=== PATIENT | female | born 1990 | race American Indian/Alaskan Native ===

== ENCOUNTER 2016-11-18 01:14 | Emergency (ER) | payer BC ==
[2016-11-18 03:09] VITALS: BP 132/74
[2016-11-18] MEDS ORDERED: TORADOL IM ONE (04:12)
--- NOTE | 2016-11-18 04:23 | Emergency Department Report ---
ED Back Pain/Injury HPI - General Chief Complaint: Back Pain/Injury Stated Complaint: CP/BACK/STOMACH PAIN Time Seen by Provider: 11/18/16 04:11 Source: patient Limitations: No Limitations - History of Present Illness Initial Comments: Patient c/o hurting her back at work hours ago. States back pain began while picking up heavy box of detergent at work ([employer]). States chest started to hurt (ache) afterwards. Reports pain exacerbated with movement and position change. Negative for audible pop/snap, difficulty breathing/SOB, radiation into legs/ thighs. Denies weakness, tingling, numbness, saddle paresthesia, other symptoms. Patient states she gets this sharp stomach pain that comes and goes out of no where. No pain at present. No nausea, vomit, diarrhea. LMP 1st week of November, on Nexplanon. - Related Data Previous Rx's Medication Instructions Recorded Last Taken Type Ibuprofen [Motrin 600 MG tab] 600 mg PO Q8H PRN #15 tablet 09/16/16 Unknown Rx metroNIDAZOLE [Flagyl TAB] 500 mg PO Q8HR #21 tablet 09/16/16 Unknown Rx Cyclobenzaprine [Flexeril] 10 mg PO TID PRN #30 tablet 11/18/16 Unknown Rx Ibuprofen [Motrin] 800 mg PO Q8HR PRN #30 tablet 11/18/16 Unknown Rx Allergies Allergy/AdvReac Type Severity Reaction Status Date / Time No Known Allergies Allergy Unverified 09/16/16 19:29 ED Review of Systems ROS: Stated complaint: CP/BACK/STOMACH PAIN Other details as noted in HPI Comment: All other systems reviewed and negative ED Past Medical Hx - Past Medical History Hx Hypertension: Yes - Surgical History Past Surgical History?: No - Social History Smoking Status: Never Smoker Substance Use Type: None - Medications Home Medications: Home Medications Medication Instructions Recorded Confirmed Last Taken Type Ibuprofen [Motrin 600 MG tab] 600 mg PO Q8H PRN #15 tablet 09/16/16 Unknown Rx metroNIDAZOLE [Flagyl TAB] 500 mg PO Q8HR #21 tablet 09/16/16 Unknown Rx Cyclobenzaprine [Flexeril] 10 mg PO TID PRN #30 tablet 11/18/16 Unknown Rx Ibuprofen [Motrin] 800 mg PO Q8HR PRN #30 tablet 11/18/16 Unknown Rx ED Physical Exam - General Limitations: No Limitations General appearance: alert, in no apparent distress - Head Head exam: Present: atraumatic, normocephalic - Eye Eye exam: Present: normal appearance, PERRL, EOMI - Neck Neck exam: Present: normal inspection, full ROM. Absent: tenderness, meningismus - Respiratory Respiratory exam: Present: normal lung sounds bilaterally, chest wall tenderness (anterior chestwall.). Absent: respiratory distress, accessory muscle use, decreased breath sounds, prolonged expiratory - Cardiovascular Cardiovascular Exam: Present: regular rate, normal rhythm - GI/Abdominal GI/Abdominal exam: Present: soft, normal bowel sounds. Absent: distended, tenderness - Extremities Exam Extremities exam: Present: normal inspection, full ROM, normal capillary refill. Absent: tenderness, pedal edema, joint swelling - Back Exam Back exam: Present: normal inspection, tenderness (b/l LS-region). Absent: full ROM, CVA tenderness (R), CVA tenderness (L), vertebral tenderness - Neurological Exam Neurological exam: Present: alert, oriented X3, normal gait, reflexes normal. Absent: motor sensory deficit - Psychiatric Psychiatric exam: Present: normal affect, normal mood - Skin Skin exam: Present: warm, dry, intact, normal color. Absent: rash, erythema, pallor, abrasion, ecchymosis ED Course Vital Signs 11/18/16 11/18/16 03:04 05:10 Temperature 98.8 F Pulse Rate 99 H Respiratory 18 Rate Blood Pressure 132/74 Blood Pressure 132/74 [Left] O2 Sat by Pulse 99 Oximetry ED Medical Decision Making - EKG Data -: EKG Interpreted by Me EKG shows normal: sinus rhythm Rate: normal (No obvious acute ST changes.) - Differential Diagnosis Lumbar strain/sprain, musculoskeletal chest pain. Critical care attestation.: If time is entered above; I have spent that time in minutes in the direct care of this critically ill patient, excluding procedure time. ED Disposition Clinical Impression: Chest wall pain Back pain Qualifiers: Back pain location: low back pain Chronicity: acute Back pain laterality: bilateral Sciatica presence: without sciatica Qualified Code(s): M54.5 - Low back pain Disposition: DISCHARGED TO HOME OR SELFCARE Is pt being admited?: No Does the pt Need Aspirin: No Condition: Stable Instructions: Chest Pain (ED), Costochondritis (ED), Acute Low Back Pain (ED), Core Strengthening Exercises (GEN) Prescriptions: Cyclobenzaprine [Flexeril] 10 mg PO TID PRN #30 tablet PRN Reason: Muscle Spasm Ibuprofen [Motrin] 800 mg PO Q8HR PRN #30 tablet PRN Reason: Pain Referrals: PRIMARY CARE, [Primary Care Provider] - 3-5 Days CHEMO PATTERSON MD [Staff Physician] - 3-5 Days Forms: Work/School Release Form(ED)
== END 2016-11-18 05:10 | disposition home or self-care (01) ==
LOC: ED 01:14
DX: R07.89 Other chest pain (principal); M54.5 Low back pain
CPT/HCPCS: 93005; 93010; 96372; 99282; J1885

== ENCOUNTER 2017-07-13 17:56 | Emergency (ER) | payer BC ==
[2017-07-13] MEDS ORDERED: TORADOL IM ONE (23:03)
--- NOTE | 2017-07-13 23:08 | Emergency Department Report ---
ED Back Pain/Injury HPI - General Chief Complaint: Back Pain/Injury Stated Complaint: BACK INJURY Time Seen by Provider: 07/13/17 22:25 Source: patient Limitations: No Limitations - History of Present Illness Initial Comments: 27-year-old female who presents department back pain. Patient states she injured her back in November. She did physical therapy and took pain medications at that time and felt like she had some mild relief. She continues to have intermittent pain in the last 3 days has had continuous pain in the middle of her back, radiates down the sides. No fevers chills nausea vomiting. No numbness tingling. -: Gradual, days(s) (2) Similar Symptoms Previously: Yes Consistency: constant Improves With: none Worsens With: movement Context: other (working) - Related Data Previous Rx's Medication Instructions Recorded Last Taken Type metroNIDAZOLE [Flagyl TAB] 500 mg PO Q8HR #21 tablet 09/16/16 Unknown Rx Ibuprofen [Motrin] 800 mg PO Q8HR PRN #30 tablet 11/18/16 Unknown Rx Cyclobenzaprine [Flexeril 10 MG 10 mg PO TID PRN #10 tablet 07/13/17 Unknown Rx TAB] Ibuprofen [Motrin 600 MG tab] 600 mg PO Q8H PRN #30 tablet 07/13/17 Unknown Rx Allergies Allergy/AdvReac Type Severity Reaction Status Date / Time No Known Allergies Allergy Verified 07/13/17 18:11 ED Review of Systems ROS: Stated complaint: BACK INJURY Other details as noted in HPI Constitutional: denies: chills, fever Respiratory: denies: cough, orthopnea Musculoskeletal: back pain. denies: joint swelling, arthralgia Neurological: denies: headache, weakness, numbness, paresthesias, confusion ED Past Medical Hx - Past Medical History Hx Hypertension: Yes - Surgical History Past Surgical History?: No - Social History Smoking Status: Never Smoker Substance Use Type: None - Medications Home Medications: Home Medications Medication Instructions Recorded Confirmed Last Taken Type metroNIDAZOLE [Flagyl TAB] 500 mg PO Q8HR #21 tablet 09/16/16 Unknown Rx Ibuprofen [Motrin] 800 mg PO Q8HR PRN #30 tablet 11/18/16 Unknown Rx Cyclobenzaprine [Flexeril 10 MG 10 mg PO TID PRN #10 tablet 07/13/17 Unknown Rx TAB] Ibuprofen [Motrin 600 MG tab] 600 mg PO Q8H PRN #30 tablet 07/13/17 Unknown Rx ED Physical Exam - General Limitations: No Limitations General appearance: alert, in no apparent distress - Head Head exam: Present: atraumatic, normocephalic - Neck Neck exam: Present: full ROM. Absent: tenderness - Respiratory Respiratory exam: Present: normal lung sounds bilaterally. Absent: respiratory distress, wheezes - Cardiovascular Cardiovascular Exam: Present: regular rate, normal rhythm - Back Exam Back exam: Present: full ROM. Absent: tenderness, CVA tenderness (R), CVA tenderness (L), muscle spasm, paraspinal tenderness, vertebral tenderness - Neurological Exam Neurological exam: Present: alert, oriented X3. Absent: motor sensory deficit ED Course Vital Signs 07/13/17 18:09 Temperature 98.8 F Pulse Rate 84 Respiratory 16 Rate Blood Pressure 140/78 O2 Sat by Pulse 98 Oximetry ED Medical Decision Making - Medical Decision Making 27-year-old female here with back pain. Patient states that she's had pain for several days and this is consistent with her prior pain. She has no neurological difficulties. I suspect this is muscle type pain and aggravation of her chronic injury. Plan discharged home. Critical care attestation.: If time is entered above; I have spent that time in minutes in the direct care of this critically ill patient, excluding procedure time. ED Disposition Clinical Impression: Back pain Disposition: DC-01 TO HOME OR SELFCARE Is pt being admited?: No Condition: Stable Instructions: Back Pain (ED), Acute Low Back Pain (ED), Core Strengthening Exercises (GEN) Prescriptions: Cyclobenzaprine [Flexeril 10 MG TAB] 10 mg PO TID PRN #10 tablet PRN Reason: Muscle Spasm Ibuprofen [Motrin 600 MG tab] 600 mg PO Q8H PRN #30 tablet PRN Reason: Pain Referrals: PRIMARY CARE,MD [Primary Care Provider] - 3-5 Days
[2017-07-13 23:59] VITALS: BP 134/80
== END 2017-07-14 | disposition home or self-care (01) ==
LOC: ED 17:56
DX: M54.9 Dorsalgia, unspecified (principal); I10 Essential (primary) hypertension; X58.XXXS Exposure to other specified factors, sequela
CPT/HCPCS: 96372; 99282; J1885

== ENCOUNTER 2017-09-28 06:27 | Emergency (ER) | payer BC ==
--- NOTE | 2017-09-28 07:42 | XRay Report ---
FINAL REPORT EXAM: XR CHEST ROUTINE 2V HISTORY: Shortness of breath TECHNIQUE: PA and lateral views of the chest were submitted. FINDINGS: The heart size and mediastinum appear normal. The lungs are clear. The bones and soft tissues appear normal. IMPRESSION: Normal chest.
[2017-09-28 08:17] LABS: Basophils % (Auto) 0.6 % (0.0-1.8); Eosinophils % (Auto) 6.4 % (0.0-4.3); Hematocrit 35.8 % (30.3-42.9); Hemoglobin 11.6 gm/dl (10.1-14.3); Mean Corpuscular HGB Conc 32 % (30-34); Mean Corpuscular Volume 80 fl (79-97); Platelet Count 256 K/mm3 (140-440); Red Blood Count 4.46 M/mm3 (3.65-5.03); White Blood Count 5.9 K/mm3 (4.5-11.0)
[2017-09-28 08:18] LABS: Mean Corpuscular Hemoglobin 26 pg (28-32)
[2017-09-28 08:26] LABS: Anion Gap 22 mmol/L; BUN/Creatinine Ratio 22; Blood Urea Nitrogen 11 mg/dL (7-17); Calcium 8.8 mg/dL (8.4-10.2); Carbon Dioxide 18 mmol/L (22-30); Chloride 106.3 mmol/L (98-107); Glucose 97 mg/dL (65-100); Potassium 4.3 mmol/L (3.6-5.0); Sodium 142 mmol/L (137-145)
--- NOTE | 2017-09-28 13:41 | Emergency Department Report ---
ED General Adult HPI - General Chief complaint: Chest Pain Stated complaint: CP Time Seen by Provider: 09/28/17 13:00 Source: patient Mode of arrival: Ambulatory Limitations: No Limitations - History of Present Illness Initial comments: The patient actually is not complaining of chest pain at all although she had some discomfort with cough. She is here complaining of productive sputum which has been white to green in color. 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 She's had no pleuritic pain no recent travel and the left pain or swelling. She states that she felt like she had a fever yesterday but did not measure her temperature. She has no history of VTE. -: Gradual, days(s) Location: chest (only on cough a soreness) Consistency: now resolved ( all) Improves with: none Worsens with: none Associated Symptoms: other (states some difficulty swallowing) Treatments Prior to Arrival: none - Related Data Previous Rx's Medication Instructions Recorded Last Taken Type metroNIDAZOLE [Flagyl TAB] 500 mg PO Q8HR #21 tablet 09/16/16 Unknown Rx Ibuprofen [Motrin] 800 mg PO Q8HR PRN #30 tablet 11/18/16 Unknown Rx Cyclobenzaprine [Flexeril 10 MG 10 mg PO TID PRN #10 tablet 07/13/17 Unknown Rx TAB] Ibuprofen [Motrin 600 MG tab] 600 mg PO Q8H PRN #30 tablet 07/13/17 Unknown Rx Azithromycin [Zithromax Z-MAHESH] 250 mg PO DAILY #6 tablet 09/28/17 Unknown Rx Allergies Allergy/AdvReac Type Severity Reaction Status Date / Time No Known Allergies Allergy Verified 07/13/17 18:11 ED Review of Systems ROS: Stated complaint: CP Other details as noted in HPI Constitutional: denies: chills, fever Eyes: denies: eye pain, eye discharge, vision change ENT: denies: ear pain, throat pain Respiratory: cough. denies: shortness of breath, wheezing Cardiovascular: as per HPI. denies: palpitations Endocrine: no symptoms reported Gastrointestinal: denies: abdominal pain, nausea, diarrhea Genitourinary: denies: urgency, dysuria, discharge Musculoskeletal: denies: back pain, joint swelling, arthralgia Skin: denies: rash, lesions Neurological: denies: headache, weakness, paresthesias Psychiatric: denies: anxiety, depression Hematological/Lymphatic: denies: easy bleeding, easy bruising ED Past Medical Hx - Past Medical History Previous Medical History?: Yes Hx Hypertension: Yes - Surgical History Past Surgical History?: No - Social History Smoking Status: Never Smoker Substance Use Type: Alcohol - Medications Home Medications: Home Medications Medication Instructions Recorded Confirmed Last Taken Type metroNIDAZOLE [Flagyl TAB] 500 mg PO Q8HR #21 tablet 09/16/16 Unknown Rx Ibuprofen [Motrin] 800 mg PO Q8HR PRN #30 tablet 11/18/16 Unknown Rx Cyclobenzaprine [Flexeril 10 MG 10 mg PO TID PRN #10 tablet 07/13/17 Unknown Rx TAB] Ibuprofen [Motrin 600 MG tab] 600 mg PO Q8H PRN #30 tablet 07/13/17 Unknown Rx Azithromycin [Zithromax Z-MAHESH] 250 mg PO DAILY #6 tablet 09/28/17 Unknown Rx ED Physical Exam - General Limitations: No Limitations General appearance: alert, in no apparent distress - Head Head exam: Present: atraumatic, normocephalic - Eye Eye exam: Present: normal appearance. Absent: scleral icterus - ENT ENT exam: Present: mucous membranes moist - Neck Neck exam: Present: normal inspection - Respiratory Respiratory exam: Present: normal lung sounds bilaterally. Absent: respiratory distress - Cardiovascular Cardiovascular Exam: Present: regular rate, normal rhythm. Absent: systolic murmur, diastolic murmur, rubs, gallop - GI/Abdominal GI/Abdominal exam: Present: soft, normal bowel sounds. Absent: distended, tenderness, guarding, rebound - Extremities Exam Extremities exam: Present: normal inspection - Back Exam Back exam: Present: normal inspection - Neurological Exam Neurological exam: Present: alert, oriented X3, CN II-XII intact. Absent: motor sensory deficit - Psychiatric Psychiatric exam: Present: normal affect, normal mood - Skin Skin exam: Present: warm, dry, intact, normal color. Absent: rash ED Course Vital Signs 09/28/17 07:09 Temperature 98.7 F Pulse Rate 90 Respiratory 20 Rate Blood Pressure 111/66 O2 Sat by Pulse 99 Oximetry ED Medical Decision Making - Lab Data Result diagrams: 09/28/17 07:17 09/28/17 07:17 Laboratory Results - last 24 hr 09/28/17 09/28/17 07:17 07:17 WBC 5.9 RBC 4.46 Hgb 11.6 Hct 35.8 MCV 80 MCH 26 L MCHC 32 RDW 16.0 H Plt Count 256 Lymph % (Auto) 30.8 Stark % (Auto) 10.2 H Eos % (Auto) 6.4 H Baso % (Auto) 0.6 Lymph # 1.8 Stark # 0.6 Eos # 0.4 Baso # 0.0 Seg Neutrophils % 52.0 Seg Neutrophils # 3.1 Sodium 142 Potassium 4.3 Chloride 106.3 Carbon Dioxide 18 L Anion Gap 22 BUN 11 Creatinine 0.5 L Estimated GFR > 60 BUN/Creatinine Ratio 22 Glucose 97 Calcium 8.8 Troponin T < 0.010 - EKG Data -: EKG Interpreted by [facility] EKG shows normal: sinus rhythm, axis, intervals, QRS complexes, ST-T waves Rate: normal - EKG Data Interpretation: no acute changes - Radiology Data Radiology results: report reviewed Chest x-ray no acute process Critical care attestation.: If time is entered above; I have spent that time in minutes in the direct care of this critically ill patient, excluding procedure time. ED Disposition Clinical Impression: Acute bronchitis Qualifiers: Bronchitis organism: unspecified organism Qualified Code(s): J20.9 - Acute bronchitis, unspecified Disposition: DC-01 TO HOME OR SELFCARE Is pt being admited?: No Does the pt Need Aspirin: No Condition: Stable Instructions: Acute Bronchitis (ED) Additional Instructions: Follow-up with primary care provider. Rx as directed. Return any acute change or worsening symptoms or problem. Prescriptions: Azithromycin [Zithromax Z-MAHESH] 250 mg PO DAILY #6 tablet Referrals: PRIMARY CAREMD [Primary Care Provider] - 3-5 Days [facility] [Provider Group] - 3-5 Days Forms: Work/School Release Form(ED) Time of Disposition: 14:26
[2017-09-28 14:32] VITALS: BP 134/77
== END 2017-09-28 15:11 | disposition home or self-care (01) ==
LOC: ED 06:27
DX: J20.9 Acute bronchitis, unspecified (principal); I10 Essential (primary) hypertension
CPT/HCPCS: 36415; 71020; 80048; 84484; 85025; 93005; 93010

== ENCOUNTER 2017-11-01 19:01 | Emergency (ER) | payer BC ==
[2017-11-02 01:01] LABS: Bilirubin,Urine NEG (Negative); Blood,Urine NEG (Negative); Color,Urine Yellow (Yellow); Mucus,Urine FEW /HPF; Nitrite,Urine NEG (Negative); Protein,Urine <15 mg/dL mg/dL (Negative)
[2017-11-02 01:04] LABS: HCG Qualitative,Urine Negative (Negative)
--- NOTE | 2017-11-02 01:18 | Emergency Department Report ---
ED General Adult HPI - General Chief complaint: Upper Respiratory Infection Stated complaint: CHEST/BACK/ABD PAIN SORE THROAT Time Seen by Provider: 11/02/17 00:18 Source: patient Mode of arrival: Ambulatory Limitations: No Limitations - History of Present Illness Initial comments: 27-year-old -[place] female comes in with complaint of cough congestion sore throat chest pain from coughing and vomiting per patient. She also admits to abdominal pain. Patient reports she has a history of back injury back in November 2016 she was seen in Dr. Rodríguez which is orthopedic. She does report that her back pain started this a.m. She admits to vomiting 3 today. She reports that she is coughing all day she says at 4:30 started this morning chest pains from coughing. Patient has not taken any medications. And she does admit to having the flu a couple of weeks ago. She has no known drug allergies. Location: back Radiation: non-radiation Severity scale (0 -10): 10 Quality: aching Consistency: intermittent Improves with: none Worsens with: none Associated Symptoms: cough, loss of appetite - Related Data Previous Rx's Medication Instructions Recorded Last Taken Type metroNIDAZOLE [Flagyl TAB] 500 mg PO Q8HR #21 tablet 09/16/16 Unknown Rx Ibuprofen [Motrin] 800 mg PO Q8HR PRN #30 tablet 11/18/16 Unknown Rx Cyclobenzaprine [Flexeril 10 MG 10 mg PO TID PRN #10 tablet 07/13/17 Unknown Rx TAB] Azithromycin [Zithromax Z-MAHESH] 250 mg PO DAILY #6 tablet 09/28/17 Unknown Rx Ibuprofen [Motrin 600 MG tab] 600 mg PO Q8H PRN #30 tablet 11/02/17 Unknown Rx Allergies Allergy/AdvReac Type Severity Reaction Status Date / Time No Known Allergies Allergy Verified 07/13/17 18:11 ED Review of Systems ROS: Stated complaint: CHEST/BACK/ABD PAIN SORE THROAT Other details as noted in HPI Constitutional: denies: chills, fever Eyes: denies: eye pain, eye discharge, vision change ENT: throat pain (started this morning), congestion (nasal congestion) Respiratory: cough Cardiovascular: chest pain (coughing) Endocrine: no symptoms reported Gastrointestinal: vomiting (3 today) Genitourinary: denies: urgency, dysuria, discharge Musculoskeletal: back pain (this morning) Skin: denies: rash, lesions Neurological: denies: headache, weakness, paresthesias Psychiatric: denies: anxiety, depression ED Past Medical Hx - Past Medical History Hx Hypertension: Yes (with ) - Social History Smoking Status: Unknown if ever smoked Substance Use Type: None - Medications Home Medications: Home Medications Medication Instructions Recorded Confirmed Last Taken Type metroNIDAZOLE [Flagyl TAB] 500 mg PO Q8HR #21 tablet 09/16/16 Unknown Rx Ibuprofen [Motrin] 800 mg PO Q8HR PRN #30 tablet 11/18/16 Unknown Rx Cyclobenzaprine [Flexeril 10 MG 10 mg PO TID PRN #10 tablet 07/13/17 Unknown Rx TAB] Azithromycin [Zithromax Z-MAHESH] 250 mg PO DAILY #6 tablet 09/28/17 Unknown Rx Ibuprofen [Motrin 600 MG tab] 600 mg PO Q8H PRN #30 tablet 11/02/17 Unknown Rx ED Physical Exam - General Limitations: No Limitations General appearance: alert - Head Head exam: Present: atraumatic, normocephalic - Eye Eye exam: Present: normal appearance - ENT ENT exam: Present: mucous membranes moist - Respiratory Respiratory exam: Present: normal lung sounds bilaterally (no active cough). Absent: respiratory distress - Cardiovascular Cardiovascular Exam: Present: regular rate, normal rhythm. Absent: systolic murmur, diastolic murmur, rubs, gallop - GI/Abdominal GI/Abdominal exam: Present: soft, normal bowel sounds. Absent: distended, tenderness - Extremities Exam Extremities exam: Present: normal inspection - Back Exam Back exam: Present: normal inspection, tenderness, paraspinal tenderness. Absent: CVA tenderness (R), CVA tenderness (L) - Neurological Exam Neurological exam: Present: alert, oriented X3 - Psychiatric Psychiatric exam: Present: normal affect, normal mood - Skin Skin exam: Present: warm, dry, intact, normal color. Absent: rash ED Course Vital Signs 11/01/17 19:11 Temperature 99 F Pulse Rate 104 H Respiratory 18 Rate Blood Pressure 128/81 O2 Sat by Pulse 100 Oximetry ED Medical Decision Making - Medical Decision Making Patient has been evaluated by this provider fast track. Urinalysis and urine test was negative. Given patient ibuprofen for pain management. Discussed with patient that she needs to follow up with her primary care provider. Patient is able to hold down apple juice without vomiting she has no active cough since she's been in the exam room. We will discharge patient on ibuprofen and have her follow-up with her primary care provider Critical care attestation.: If time is entered above; I have spent that time in minutes in the direct care of this critically ill patient, excluding procedure time. ED Disposition Clinical Impression: Back pain, chronic Qualifiers: Back pain location: low back pain Back pain laterality: bilateral Sciatica presence: without sciatica Qualified Code(s): M54.5 - Low back pain; G89.29 - Other chronic pain; G89.29 - Other chronic pain Disposition: DC- TO HOME OR SELFCARE Is pt being admited?: No Does the pt Need Aspirin: No Condition: Stable Instructions: Cold Symptoms (ED) Additional Instructions: She can take ibuprofen for pain. He can use [id number] Flonase for nasal congestion. Started off with a bland diet and advance as tolerated. Prescriptions: Ibuprofen [Motrin 600 MG tab] 600 mg PO Q8H PRN #30 tablet PRN Reason: Pain Forms: Work/School Release Form(ED)
[2017-11-02 02:12] VITALS: BP 130/81
== END 2017-11-02 02:12 | disposition home or self-care (01) ==
LOC: ED 19:01
DX: M54.5 Low back pain (principal); G89.29 Other chronic pain
CPT/HCPCS: 81001; 81025; 99283

== ENCOUNTER 2018-03-08 19:14 | Emergency (ER) | payer BC, MEDICAID ==
[2018-03-08 20:45] VITALS: BP 107/60
[2018-03-08 21:13] LABS: Bacteria,Urine 1+ /HPF (Negative); Bilirubin,Urine NEG (Negative); Blood,Urine NEG (Negative); Color,Urine Yellow (Yellow); Mucus,Urine FEW /HPF; Protein,Urine <15 mg/dL mg/dL (Negative)
[2018-03-08 21:22] LABS: Basophils # (Auto) 0.1 K/mm3 (0.0-0.1); Eosinophils # (Auto) 0.1 K/mm3 (0.0-0.4); Eosinophils % (Auto) 0.8 % (0.0-4.3); Hematocrit 39.4 % (30.3-42.9); Hemoglobin 12.6 gm/dl (10.1-14.3); Lymphocytes # (Auto) 2.1 K/mm3 (1.2-5.4); Lymphocytes % (Auto) 22.4 % (13.4-35.0); Mean Corpuscular HGB Conc 32 % (30-34); Mean Corpuscular Hemoglobin 24 pg (28-32); Mean Corpuscular Volume 76 fl (79-97); Monocytes # (Auto) 0.8 K/mm3 (0.0-0.8); Platelet Count 306 K/mm3 (140-440); Red Blood Count 5.18 M/mm3 (3.65-5.03); Red Cell Distribution Width 19.5 % (13.2-15.2)
[2018-03-08 21:34] LABS: BUN/Creatinine Ratio 18; Blood Urea Nitrogen 9 mg/dL (7-17); Calcium 9.7 mg/dL (8.4-10.2); Hemolysis Index 78
== END 2018-03-09 02:31 | disposition left against medical advice (07) ==
LOC: ED 19:14
DX: O26.891 Other specified pregnancy related conditions, first trimester (principal); R10.2 Pelvic and perineal pain; Z3A.09 9 weeks gestation of pregnancy; Z53.21 Procedure and treatment not carried out due to patient leaving prior to being seen by health care provider
CPT/HCPCS: 36415; 80048; 81001; 84702; 85025

== ENCOUNTER 2021-04-26 13:21 | Emergency (ER) | payer BC, MEDICAID, OTHER ==
--- NOTE | 2021-04-26 13:43 | Event Note ---
ED Screening Note Date of service: 04/26/21 Time: 13:41 ED Screening Note: 30-year-old female patient presents to the emergency department with complaints of back pain starting yesterday and burning with urination starting today. No prior history of UTIs, pyelonephritis, kidney stones. No preceding fall, trauma, or injury. Pain is localized to the mid-lower back. Patient states she "had two menstrual cycles this month, the last one was sometime last week." General: Awake, appropriately interactive, no acute distress. Neck: Supple. Full range of motion intact. Cardiovascular: Normal peripheral perfusion. Pulmonary: No respiratory distress. Patient is speaking normally without use of accessory muscles. Skin: No apparent rashes or lesions. Neurological: No facial asymmetry. Speech is clear. Follows commands. Patient is alert and oriented. Musculoskeletal: Moves all four extremities spontaneously with normal range of motion. No CVA tenderness. Psych: Cooperative. Appropriate mood and affect. Urinalysis ordered. Decision to pursue further work-up deferred to additional E D providers following full history and comprehensive physical assessment. I have greeted and performed a focused rapid initial assessment of this patient. A comprehensive ED assessment and evaluation of the patient, analysis of all test results, and completion of the medical decision-making process will be conducted by additional ED providers. This initial assessment/diagnostic orders/clinical plan/treatment(s) is/are subject to change based on patients health status, clinical progression and re-assessment. Further treatment and workup at subsequent clinical provider's discretion. Patient/guardian urged not to elope from the ED as their condition may be serious if not clinically assessed and managed.
[2021-04-26 15:29] LABS: Bilirubin,Urine NEG (Negative); Blood,Urine NEG (Negative); Color,Urine Yellow (Yellow); Mucus,Urine FEW /HPF; Protein,Urine <15 mg/dL mg/dL (Negative); Urobilinogen,Urine < 2.0 mg/dL (<2.0)
[2021-04-26] MEDS ORDERED: ACETAMINOPHEN 500 MG TAB PO ONE (15:41)
--- NOTE | 2021-04-26 15:41 | Emergency Department Report ---
ED Dysuria HPI - HPI Chief Complaint: Urogenital-Female Stated Complaint: LOWER BACK PAIN, HEADACHE Time Seen by Provider: 04/26/21 14:53 Duration: 2 Days Location of Discomfort: Suprapubic Symptoms: Dysuria: Yes, Frequency: No, Suprapubic Pain: No, Flank Pain: Yes, Fever: No, Hematuria: No, Abdominal Pain: No, Previous UTI's: Yes Other History: 30 YO AA COMES IN WITH DYSURIA AND LBP. NO FEVER OR CHILLS. IRREGULAR PERIODS. AMBULATORY AND NON ILL APPEARING ON EXAM ED Review of Systems ROS: Stated complaint: LOWER BACK PAIN, HEADACHE Other details as noted in HPI Comment: All other systems reviewed and negative ED Past Medical Hx - Past Medical History Previous Medical History?: No Hx Hypertension: Yes (with ) - Surgical History Past Surgical History?: No - Family History Family history: no significant - Social History Smoking Status: Current Every Day Smoker Substance Use Type: None - Medications Home Medications: Home Medications Medication Instructions Recorded Confirmed Last Taken Type Sulfamethoxazole/Trimethoprim 1 each PO BID #10 tablet 04/26/21 Unknown Rx [Bactrim DS TAB] Dysuria Exam - Exam General: Vital signs noted. No distress. Alert and acting appropriately. Exam: Yes Moist Mucous Membranes, No CVA Tenderness, No Abdominal Tenderness, No Rigidity or Guarding Exam: ABD SNT. NO CVA TENDERNESS. TAKING PO AND NAD Labs: Lab Results 04/26/21 Range/Units Unknown Urine Bilirubin Neg (Negative) Urine RBC (Auto) 3.0 (0.0-6.0) /HPF U Epithel Cells (Auto) 10.0 (0-13.0) /HPF ED Course Vital Signs 04/26/21 13:39 Temperature 99.1 F Pulse Rate 89 Respiratory 20 Rate Blood Pressure 129/72 O2 Sat by Pulse 98 Oximetry ED Medical Decision Making - Medical Decision Making Labs 04/26/21 Unknown Urine Color Yellow Urine Turbidity Hazy Urine pH 6.0 Ur Specific [place] 1.006 Urine Protein <15 mg/dl Urine Glucose (UA) Neg Urine Ketones Neg Urine Blood Neg Urine Nitrite Neg Urine Bilirubin Neg Urine Urobilinogen < 2.0 Ur Leukocyte Esterase Mod Urine WBC (Auto) 5.0 Urine RBC (Auto) 3.0 U Epithel Cells (Auto) 10.0 Urine Mucus Few Urine HCG, Qual Negative Vital Signs 04/26/21 13:39 Temperature 99.1 F Pulse Rate 89 Respiratory 20 Rate Blood Pressure 129/72 O2 Sat by Pulse 98 Oximetry PREG NEG UA NOTED ROCEPHIN IM DC HOME WITH RX FOR BACTRIM. PT VERBALIZES UNDERSTANDING OF DC PLAN OF CARE. PT AMBULATORY NON TOXIC AND NON ILL APPEARING ON DC. - Differential Diagnosis RO UTI/PREG Critical care attestation.: If time is entered above; I have spent that time in minutes in the direct care of this critically ill patient, excluding procedure time. ED Disposition Clinical Impression: UTI (urinary tract infection) Disposition: DC-01 TO HOME OR SELFCARE Is pt being admited?: No Does the pt Need Aspirin: No Condition: Stable Instructions: Urinary Tract Infection, Adult Additional Instructions: MED ORDERED UNTIL GONE STAY WELL HYDRATED MOTRIN OR TYLENOL FOR PAIN OR FEVER FOLLOW UP WITH PCP ON SATURDAY FOR RECHECK REFERRAL BELOW Prescriptions: Sulfamethoxazole/Trimethoprim [Bactrim DS TAB] 1 each PO BID #10 tablet Referrals: FÉLIX HASTINGS MD [Staff Physician] - 3-5 Days Time of Disposition: 15:46
[2021-04-26 15:52] LABS: HCG Qualitative,Urine Negative (Negative)
[2021-04-26] MEDS ORDERED: cefTRIAXone/NS 1 GM/50 ML 1 GM/50 ML BAG IV ONE (15:52)
[2021-04-26] MEDS ORDERED: SODIUM CHLORIDE 0.9% 1000 ML 1,000 ML IV ONE (15:52)
[2021-04-26] MEDS ORDERED: LIDOCAINE-MPF (1%) 10 MG/1 ML VIAL 5 ML INFILTRATI ONE (15:54)
[2021-04-26 16:18] VITALS: BP 130/70
== END 2021-04-26 16:17 | disposition home or self-care (01) ==
LOC: ED 13:21
DX: N39.0 Urinary tract infection, site not specified (principal); I10 Essential (primary) hypertension; F17.200 Nicotine dependence, unspecified, uncomplicated; Z79.899 Other long term (current) drug therapy
CPT/HCPCS: 81001; 81025; 96372; 99283; J0696

== ENCOUNTER 2021-05-09 11:58 | Emergency (ER) | payer OTHER, MEDICAID ==
[2021-05-09 13:40] VITALS: BP 115/48
[2021-05-09 14:35] LABS: Basophils % (Auto) 0.5 % (0.0-1.8); Eosinophils % (Auto) 0.8 % (0.0-4.3); Hematocrit 37.9 % (30.3-42.9); Hemoglobin 12.6 gm/dl (10.1-14.3); Lymphocytes # (Auto) 1.8 K/mm3 (1.2-5.4); Lymphocytes % (Auto) 36.5 % (13.4-35.0); Mean Corpuscular HGB Conc 33 % (30-34); Mean Corpuscular Volume 80 fl (79-97); Monocytes # (Auto) 0.3 K/mm3 (0.0-0.8); Platelet Count 185 K/mm3 (140-440); Red Blood Count 4.76 M/mm3 (3.65-5.03); Red Cell Distribution Width 16.3 % (13.2-15.2)
[2021-05-09 14:57] LABS: Alanine Aminotransferase 40 units/L (7-56); Albumin 4.5 g/dL (3.9-5); Blood Urea Nitrogen 8 mg/dL (7-17); Calcium 9.3 mg/dL (8.4-10.2); Hemolysis Index 3
[2021-05-09 15:00] LABS: Bilirubin,Urine NEG (Negative); Blood,Urine NEG (Negative); Color,Urine Yellow (Yellow); Mucus,Urine FEW /HPF; Protein,Urine <15 mg/dL mg/dL (Negative); Urobilinogen,Urine < 2.0 mg/dL (<2.0)
[2021-05-09 15:07] LABS: BUN/Creatinine Ratio 13
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
[2021-05-09 17:04] LABS: HCG Qualitative,Urine Negative (Negative)
== END 2021-05-09 17:24 | disposition home or self-care (01) ==
LOC: ED 11:58
DX: M54.5 Low back pain (principal); N39.0 Urinary tract infection, site not specified; Z3A.00 Weeks of gestation of pregnancy not specified; Z37.9 Outcome of delivery, unspecified; R30.0 Dysuria; F17.200 Nicotine dependence, unspecified, uncomplicated; V87.7XXA Person injured in collision between other specified motor vehicles (traffic), initial encounter; Y93.89 Activity, other specified; Y92.89 Other specified places as the place of occurrence of the external cause; Y99.8 Other external cause status
CPT/HCPCS: 36415; 80053; 81001; 81025; 85025; 87086; 99283